=== PATIENT | female | born 1970 | race Caucasian/White ===

== ENCOUNTER 2017-08-23 15:02 | Inpatient (IN) | payer SELFPAY ==
[~2017-08-23] VITALS: Ht 152.4 cm; Wt 97.1 kg
[2017-08-23 18:03] LABS: BASOPHILS % 1.3 % (0.0-2.0); EOSINOPHILS % 2.4 % (0.0-5.0); HEMATOCRIT. 32.2 % (36.0-48.0); HEMOGLOBIN. 10.2 g/dL (12.0-16.0); LYMPHOCYTES % 18.5 % (20.0-50.0); MEAN CORPUSCULAR HEMOGLOBIN 33.3 pg (28.0-32.0); MEAN PLATELET VOLUME 10.6 fl (7.4-10.4); MONOCYTES % 6.7 % (2.0-8.0); NEUTROPHILS % 71.1 % (40.0-76.0); PLATELET 189 x1000/uL (130-400); RED BLOOD CELL COUNT 3.06 mill/uL (4.2-5.4)
[2017-08-23 18:06] LABS: PARTIAL THROMBOPLASTIN TIME 34.5 sec (23.4-31.0); PROTHROMBIN TIME 10.7 sec (9.4-11.6)
[2017-08-23 18:12] LABS: CARBON DIOXIDE 29 mEq/L (21-32); CHLORIDE 95 mEq/L (98-107)
[2017-08-23 18:14] LABS: TROPONIN I 0.03 ng/mL (0.00-0.04)
[2017-08-23] MEDS ORDERED: INSULIN REGULAR (HUMULIN R) 300UNITS/3ML IV ONE (18:30)
[2017-08-23] MEDS ORDERED: SODIUM POLYSTYRENE SULFONATE 15 G/60 ML BOT PO ONE (18:30)
[2017-08-23] MEDS ORDERED: ALBUTEROL (0.083%) 2.5MG/3ML NEB HHN ONE (18:30)
[2017-08-23] MEDS ORDERED: CALCIUM GLUCONATE 100MG/ML 10ML VIAL IV ONE (18:30)
[2017-08-23] MEDS ORDERED: SODIUM BICARBONATE 8.4% 1 MEQ/ML 50ML SYR IV ONE (18:30)
[2017-08-23] MEDS ORDERED: ASPIRIN 325MG EC TABLET PO ONE (21:00)
[2017-08-23] MEDS ORDERED: DOCUSATE SODIUM 100MG CAPSULE PO PRN (21:15)
[2017-08-23] MEDS ORDERED: ACETAMINOPHEN 325MG TABLET PO PRN (21:15)
[2017-08-23] MEDS ORDERED: DIPHENHYDRAMINE 50MG/ML VIAL IV PRN (21:15)
[2017-08-23] MEDS ORDERED: IPRATROPIUM/ALBUTEROL 0.5-3(2.5)MG/3ML NEB INH PRN (21:15)
[2017-08-23] MEDS ORDERED: CLONIDINE 0.1MG TABLET PO PRN (21:15)
[2017-08-23] MEDS ORDERED: MAGNESIUM/ALUMINUM HYDROXIDE/SIMETHICONE 30ML UDC PO PRN (21:15)
[2017-08-23] MEDS ORDERED: ONDANSETRON HCL 4MG/2ML VIAL IV PRN (21:15)
[2017-08-23] MEDS ORDERED: GUAIFENESIN 200MG/10ML SUGAR FREE UDC PO PRN (21:15)
[2017-08-23] MEDS ORDERED: CLONIDINE 0.2MG TABLET PO ONE (21:45)
[2017-08-23] MEDS ORDERED: NA PHOS,M-B/NA PHOS,DI-BA ENEMA 118ML PR PRN (21:47)
[2017-08-23] MEDS ORDERED: HYDROCODONE/ACETAMINOPHEN 10/325MG TABLET PO PRN (22:00)
[2017-08-23] MEDS ORDERED: MORPHINE SULFATE 2 MG/ML CPJ (NOT FOR IM USE) IV PRN (22:00)
[2017-08-23] MEDS ORDERED: LORAZEPAM 0.5MG TABLET PO PRN (22:00)
[2017-08-24 01:00] LABS: TROPONIN I 0.02 ng/mL (0.00-0.04)
[2017-08-24 02:00] VITALS: BP 198/100
[2017-08-24 04:00] VITALS: BP 148/79
[2017-08-24] MEDS ORDERED: DOCU-138 PO (04:34)
[2017-08-24] MEDS ORDERED: CALC667T5 PO (04:34)
[2017-08-24] MEDS ORDERED: LEVO75TA7 PO (04:34)
[2017-08-24] MEDS ORDERED: ACET-2178 PO (04:34)
[2017-08-24] MEDS ORDERED: CALC-25 PO (04:34)
[2017-08-24] MEDS ORDERED: CARV6.2548 PO (04:34)
[2017-08-24] MEDS ORDERED: LURA40TA PO (04:34)
[2017-08-24] MEDS ORDERED: DEXTROSE 50% WATER 50ML SYRINGE IV PRN (04:45)
[2017-08-24] MEDS ORDERED: DOCUSATE SODIUM 100MG CAPSULE PO PRN (04:45)
[2017-08-24] MEDS: BLOOD SUGAR DIAGNOSTIC STRIP TEST SCH ×4 (06:38→20:39)
[2017-08-24] MEDS ORDERED: LEVOTHYROXINE SODIUM 75MCG TABLET PO SCH (07:40)
[2017-08-24 07:57] LABS: BASOPHILS % 0.8 % (0.0-2.0); EOSINOPHILS % 3.3 % (0.0-5.0); HEMATOCRIT. 32.4 % (36.0-48.0); HEMOGLOBIN. 10.6 g/dL (12.0-16.0); LYMPHOCYTES % 17.6 % (20.0-50.0); MEAN CORPUSCULAR HEMOGLOBIN 33.6 pg (28.0-32.0); MEAN CORPUSCULAR VOLUME 103.1 fL (81.0-99.0); MEAN PLATELET VOLUME 10.3 fl (7.4-10.4); MONOCYTES % 8.7 % (2.0-8.0); NEUTROPHILS % 69.6 % (40.0-76.0); PLATELET 175 x1000/uL (130-400); RED BLOOD CELL COUNT 3.15 mill/uL (4.2-5.4); RED CELL DISTRIBUTION WIDTH 16.7 % (11.6-14.6)
[2017-08-24 08:00] VITALS: BP 142/71
[2017-08-24] MEDS ORDERED: CALCIUM ACETATE PO SCH (08:10)
[2017-08-24 08:28] LABS: CHLORIDE 98 mEq/L (98-107)
[2017-08-24] MEDS: ENOXAPARIN 40MG/0.4ML SYR SUBCUT SCH (09:00)
[2017-08-24] MEDS ORDERED: CALCIUM CARBONATE 1250MG TABLET (500MG ELEMENTAL CALCIUM) PO SCH (09:00)
[2017-08-24] MEDS: INSULIN LISPRO 100 UNITS/ML SUBCUT SCH ×4 (09:01→20:38)
[2017-08-24 09:09] LABS: CARBON DIOXIDE 26 mEq/L (21-32); HDL CHOLESTEROL 52 mg/dL (40-59); LDL CHOLESTEROL 59 mg/dL (5-100); T4 FREE 0.33 ng/dL (0.76-1.46); TROPONIN I 0.04 ng/mL (0.00-0.04)
[2017-08-24] MEDS: CALCIUM CARBONATE 1250MG TABLET (500MG ELEMENTAL CALCIUM) PO SCH ×2 (09:45→17:00)
[2017-08-24] MEDS: CALCIUM ACETATE 667MG CAPSULE PO SCH ×4 (09:45→18:10)
[2017-08-24] MEDS: ASPIRIN 81MG EC TABLET PO SCH (09:46)
[2017-08-24 12:00] VITALS: BP 128/82
[2017-08-24] MEDS ORDERED: INFLUENZA VIRUS VACCINE 0.5ML SYR IM ONE (12:00)
[2017-08-24] MEDS ORDERED: LEVOTHYROXINE SODIUM 75MCG TABLET PO NR (12:30)
[2017-08-24 16:00] VITALS: BP 144/79
[2017-08-24 18:10] LABS: CREATINE KINASE MB FRACTION 6.6 ng/mL (0.5-3.6)
[2017-08-24 20:00] VITALS: BP 182/97
[2017-08-25] VITALS: BP 168/90
[2017-08-25 00:08] LABS: CREATINE KINASE MB FRACTION 5.1 ng/mL (0.5-3.6)
[2017-08-25 04:00] VITALS: BP 138/75
[2017-08-25] MEDS: INSULIN LISPRO 100 UNITS/ML SUBCUT SCH (06:30)
[2017-08-25] MEDS: BLOOD SUGAR DIAGNOSTIC STRIP TEST SCH (06:30)
[2017-08-25] MEDS ORDERED: LEVOTHYROXINE SODIUM 150MCG TABLET PO SCH (07:40)
[2017-08-25 08:00] VITALS: BP 106/64
[2017-08-25 08:23] LABS: BASOPHILS % 1.2 % (0.0-2.0); EOSINOPHILS % 1.3 % (0.0-5.0); HEMATOCRIT. 33.8 % (36.0-48.0); HEMOGLOBIN. 10.9 g/dL (12.0-16.0); LYMPHOCYTES % 26.4 % (20.0-50.0); MEAN CORPUSCULAR HEMOGLOBIN 33.4 pg (28.0-32.0); MEAN PLATELET VOLUME 10.5 fl (7.4-10.4); NEUTROPHILS % 58.1 % (40.0-76.0); PLATELET 164 x1000/uL (130-400); RED BLOOD CELL COUNT 3.25 mill/uL (4.2-5.4); RED CELL DISTRIBUTION WIDTH 16.9 % (11.6-14.6)
[2017-08-25] MEDS: CALCIUM ACETATE 667MG CAPSULE PO SCH (08:42)
[2017-08-25] MEDS: ASPIRIN 81MG EC TABLET PO SCH (08:42)
[2017-08-25] MEDS: CALCIUM CARBONATE 1250MG TABLET (500MG ELEMENTAL CALCIUM) PO SCH (08:42)
[2017-08-25] MEDS: ENOXAPARIN 40MG/0.4ML SYR SUBCUT SCH (08:43)
[2017-08-25] MEDS ORDERED: CALCIUM CHLORIDE 1GM/10ML SYR IV ONE (10:47)
[2017-08-25] MEDS ORDERED: AMIODARONE HCL 50MG/ML 3ML VIAL IV ONE (10:47)
[2017-08-25] MEDS ORDERED: SODIUM BICARBONATE 7.5% 0.9 MEQ/ML 50ML SYR IV ONE (10:47)
[2017-08-25] MEDS ORDERED: ATROPINE SULFATE 1MG/10ML SYR ONE (10:47)
[2017-08-25] MEDS ORDERED: DOPAMINE 400MG IN DEXT 5% 250ML PREMIX IV ONE (10:47)
[2017-08-25] MEDS ORDERED: EPINEPHRINE 0.1MG/ML (1:10,000) 10ML SYR ONE ×2 (10:47)
== END 2017-08-25 15:26 | disposition expired | DRG 425 ==
LOC: ER 15:19 → 7WST 20:57 → ENRESERV 21:47
PROVIDERS: ADMIT Internal Medicine; ATTEND Internal Medicine
PROC: 5A12012 Performance of Cardiac Output, Single, Manual (ICD-10-PCS; principal; 2017-08-25)
PROC: 0BH17EZ Insertion of Endotracheal Airway into Trachea, Via Natural or Artificial Opening (ICD-10-PCS; 2017-08-25)
DX: E87.5 Hyperkalemia (principal); I13.2 Hypertensive heart and chronic kidney disease with heart failure and with stage 5 chronic kidney disease, or end stage renal disease; E46 Unspecified protein-calorie malnutrition; E11.22 Type 2 diabetes mellitus with diabetic chronic kidney disease; N18.6 End stage renal disease; I46.9 Cardiac arrest, cause unspecified; E03.9 Hypothyroidism, unspecified; E11.65 Type 2 diabetes mellitus with hyperglycemia; E66.01 Morbid (severe) obesity due to excess calories; E78.5 Hyperlipidemia, unspecified; I25.10 Atherosclerotic heart disease of native coronary artery without angina pectoris; I50.9 Heart failure, unspecified; J44.9 Chronic obstructive pulmonary disease, unspecified; D64.9 Anemia, unspecified; R79.89 Other specified abnormal findings of blood chemistry; E87.70 Fluid overload, unspecified; Z79.899 Other long term (current) drug therapy; Z91.19 Patient's noncompliance with other medical treatment and regimen; Z91.15 Patient's noncompliance with renal dialysis; Z68.41 Body mass index [BMI] 40.0-44.9, adult
CPT/HCPCS: 36415; 70450; 71010; 80048; 80053; 80061; 82550; 82553; 82962; 83036; 83880; 84439; 84443; 84484; 85025; 85379; 85610; 85730; 87040; 93005; 94640; 96374; 96375; 99291; J0610; J1650; J1815; J3490; J7030; J7611